=== PATIENT | female | born 1995 | race Two or more races ===

== ENCOUNTER 2025-02-23 06:50 | Day surgery (SDC) | payer OTHER ==
[2025-02-22 12:59] LABS: BASO % 0.3 % (0.1-1.2); EOS # 0.11 (0.04-0.54); EOS % 0.9 % (0.7-7.0); LYMPH # 2.15 (1.18-3.74); LYMPH % 18.1 % (19.3-53.1); MEAN PLATELET VOLUME 9.20 fl (9.4-12.4); MONO # 0.74 (0.24-0.82); MONO % 6.2 % (4.7-12.5); NEUT # 8.84 (1.56-6.13); NEUT % 74.2 % (34.0-71.1); RED CELL DISTRIBUTION WIDTH 11.6 % (11.6-14.4)
[2025-02-22 13:20] LABS: INR 1.05
[2025-02-23] MEDS ORDERED: POVIDONE-IODINE 118 ML BOTT TOP ONE (10:00)
[2025-02-23] MEDS ORDERED: CEFOXITIN SODIUM 2,000 MG VIAL IV ONE (10:00)
== END 2025-02-23 14:15 | disposition home or self-care (01) ==
LOC: CIR.AMB 06:50
PROVIDERS: ATTEND Obstetrics & Gynecology Maternal & Fetal Medicine
DX: O02.1 Missed abortion (principal)